=== PATIENT | female | born 1990 | race African-American/Black ===

== ENCOUNTER 2019-10-05 20:04 | Emergency (ER) | payer BC ==
[~2019-10-05] VITALS: Ht 167.6 cm; Wt 113.6 kg
[2019-10-05 20:04] VITALS: TEMP 97.7
[~2019-10-05 20:04] MED LIST: ADDERALL5 MG PO; BCP TD; PREDNISONE20 MG PO
[2019-10-05] MEDS ORDERED: ZOLOFT 100MG100 MG PO (20:11)
[2019-10-05 21:08] LABS: BASO % 0.4 % (0.0-2.0); EOS # 0.3 (0.0-0.7); EOS % 2.8 % (0-4.0); GRAN # 6.4 (1.4-6.5); GRAN % 66.5 % (42.2-75.2); HEMATOCRIT 39.7 % (37.0-47.0); HEMOGLOBIN 13.5 g/dl (12.5-16.0); LYMPH # 2.4 (1.2-3.4); LYMPH % 24.5 % (20.0-51.0); MEAN CELL VOLUME 90 fl (80.0-100.0); MEAN CORPUSCULAR HEMOGLOBIN 31 pg (27.0-31.0); MEAN CORPUSCULAR HGB CONC 34 g/dl (33.0-37.0); MEAN PLATELET VOLUME 8.3 fl (7.4-10.4); MONO # 0.5 (0.1-0.6); MONO % 5.4 % (1.7-9.3); PLATELET COUNT 380 K/mm3 (130-400); RED BLOOD COUNT 4.43 M/mm3 (4.10-5.30); REDCELL DISTRIBUTION WIDTH-CV 11.4 % (11.5-14.5)
[2019-10-05 21:14] LABS: INR 1.1 (0.8-3.0); PROTHROMBIN TIME 12.7 SECONDS (9.7-12.8)
[2019-10-05 21:18] LABS: BILIRUBIN,TOTAL 0.7 mg/dL (0.0-1.0); CALCIUM 8.8 mg/dL (8.4-10.2); CREATININE, serum 0.76 (0.52-1.25); POTASSIUM 3.7 mmol/L (3.4-5.0); TOTAL PROTEIN 7.7 gm/dL (6.4-8.2)
[2019-10-05] MEDS ORDERED: FLEXERIL 1010 MG/TAB PO (22:34)
[2019-10-05 23:16] VITALS: BP 112/85; PULSE 86
== END 2019-10-05 23:24 | disposition home or self-care (01) ==
LOC: COL.ER 20:04
PROVIDERS: Emergency Medicine
DX: S30.1XXA Contusion of abdominal wall, initial encounter (principal); S30.0XXA Contusion of lower back and pelvis, initial encounter; S40.012A Contusion of left shoulder, initial encounter; S60.511A Abrasion of right hand, initial encounter; S70.312A Abrasion, left thigh, initial encounter; S70.311A Abrasion, right thigh, initial encounter; R40.2412 Glasgow coma scale score 13-15, at arrival to emergency department; F41.9 Anxiety disorder, unspecified; E66.9 Obesity, unspecified; Z88.2 Allergy status to sulfonamides; Z68.41 Body mass index [BMI] 40.0-44.9, adult; V49.3XXA Car occupant (driver) (passenger) injured in unspecified nontraffic accident, initial encounter
CPT/HCPCS: J1885; J3010; J7030; Q9967